=== PATIENT | female | born 1980 | race Caucasian/White ===

== ENCOUNTER 2019-08-16 22:08 | Emergency (ER) | payer MEDICAID ==
[~2019-08-16] VITALS: Ht 160 cm; Wt 81.0 kg
[2019-08-16] MEDS ORDERED: LORAZEPAM 1MG TABLET PO ONE (22:45)
[2019-08-16 23:24] VITALS: BP 175/109
== END 2019-08-16 23:26 | disposition home or self-care (01) ==
LOC: ER 22:08
DX: R06.4 Hyperventilation (principal); F41.9 Anxiety disorder, unspecified; I10 Essential (primary) hypertension
CPT/HCPCS: 93005; 99284